=== PATIENT | female | born 2000 | race Caucasian/White ===

== ENCOUNTER 2018-08-20 14:21 | Emergency (ER) | payer MEDICAID ==
[~2018-08-20] VITALS: Ht 167.6 cm; Wt 56.8 kg
[2018-08-20] MEDS ORDERED: NORG1TAB65 PO (14:38)
--- NOTE | 2018-08-20 14:42 | NUR ---
PT TO ED FOR RIGHT UPPER QUADRANT ABD PAIN SINCE 1999 LAST NIGHT, WORSE WITH BREATHING AND MOVEMENT. PT UNABLE TO LIE FLAT OR STAND UP STRAIGHT. WORSE TODAY WITH SHARP, SHOOTING PAINS TODAY. CONNECTED TO MONITORS.VSS. NO NEEDS AT THIS TIME. LAB AT BEDSIDE. AWAITING RESULTS AND EDMD ASSESSMENT.
[2018-08-20 14:56] LABS: BASOPHILS # (AUTO) 0.09 x10^3/uL (0-0.3); BASOPHILS % (AUTO) 1 % (0-1); EOSINOPHILS # (AUTO) 0.04 x10^3/uL (0-0.8); EOSINOPHILS % (AUTO) 0 % (1-7); LYMPHOCYTES # (AUTO) 1.46 x10^3/uL (1-6.1); LYMPHOCYTES % (AUTO) 16 % (22-44); MD NO; MEAN CORPUSCULAR HEMOGLOBIN 30.7 pg (27.0-34.8); MEAN CORPUSCULAR HGB CONC 33.9 g/dL (32.4-35.8); MEAN CORPUSCULAR VOLUME 90.6 fL (80-100); MEAN PLATELET VOLUME 7.8 fL (7.4-10.4); MONOCYTES % (AUTO) 5 % (2-9); NEUTROPHILS # (AUTO) 7.29 x10^3/uL (1.8-8.0); NEUTROPHILS % (AUTO) 78 % (42-75); PLATELET COUNT 346 x10^3/uL (130-400); RED BLOOD COUNT 4.75 x10^6/uL (3.82-5.3); RED CELL DISTRIBUTION WIDTH 12.5 % (9.6-15.2)
[2018-08-20 15:05] LABS: ALANINE AMINOTRANSFERASE 26 U/L (12-78); ANION GAP 3 mmol/L (5-15); CHLORIDE 109 mmol/L (98-107); CREATININE 0.74 mg/dL (0.55-1.02)
[2018-08-20 15:09] LABS: ALKALINE PHOSPHATASE 61 U/L (45-117); BILIRUBIN,TOTAL 0.4 mg/dL (0.2-1.0); TOTAL PROTEIN 7.6 g/dL (6.4-8.2)
[2018-08-20] MEDS ORDERED: KETOROLAC 30 MG/1 ML ONE (15:24)
[2018-08-20] MEDS ORDERED: METHOCARBAMOL 750 MG TABLET ONE (15:24)
[2018-08-20 15:28] VITALS: BP 109/63
--- NOTE | 2018-08-20 15:28 | NUR ---
PT MEDICATED PER MAR. VSS. NO NEEDS AT THIS TIME. CALL LIGHT WITHIN REACH. AWAITING RESUTLS.
[2018-08-20] MEDS ORDERED: KETOROLAC 30 MG/1 ML IM ONE (15:30)
[2018-08-20] MEDS ORDERED: METHOCARBAMOL 750 MG TABLET PO ONE (15:30)
--- NOTE | 2018-08-20 15:30 | NUR ---
ALL RESUTLS BACK AT THIS TIME. CHART UP FOR RECHECK.
== END 2018-08-20 16:13 | disposition home or self-care (01) ==
LOC: ED 15:55
DX: M62.838 Other muscle spasm (principal)
CPT/HCPCS: 36415; 76700; 80053; 83690; 84703; 85025; 96372; 99284; J1885